=== PATIENT | female | born 1965 | race Caucasian/White ===

== ENCOUNTER 2020-01-21 14:41 | Emergency (ER) | payer OTHER, SELFPAY ==
[2020-01-21 14:42] VITALS: BP 133/91; PULSE 98; RESP 14; TEMP 36.7; O2SAT 99; BMI 24.7
[2020-01-21] MEDS: Tetracaine 0.5% Ophthalmic Bottle OPHTHALMIC (15:38)
[2020-01-21] MEDS: Fluorescein 1 MG STRIP 1 STRIP OPHTHALMIC (15:38)
--- NOTE | 2020-01-21 15:39 | ED.DCSUM_ITS ---
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 She reports that she went to bed fine 2 days ago and woke up in the morning with a foreign body sensation in her right eye. She complains of pain that is 5-10 in severity currently and at worst. Is worsened by nothing. Is relieved by placing pressure over her right eye. She denies any matting of her eye. She does have photophobia. She does not wear contacts. She does wear glasses. Denies any known injury. However, she states that she works with a clear coat pain to that she is worried she may have gotten in her eye. Physical Examination: Vitals: Stable. Afebrile. General: Well-nourished and well-developed. Head: Normocephalic atraumatic. Right eye: Tetracaine was instilled. The right upper eyelid was everted. There is no foreign body. It was swept with a Q-tip. She has diffuse conjunctival injection. There is no foreign body visualized with the slit-lamp. She does have a corneal abrasion with fluorescein dye uptake over the visual axis on the right. Neck: Supple, no lymphadenopathy. No JVD. Nontender. Cardiovascular: Regular rate and rhythm. No murmurs. Respiratory: No respiratory distress. Clear to auscultation bilaterally. Abdominal: Soft, nontender, nondistended, normal bowel sounds. No guarding, rebound, or peritoneal signs. Back: Nontender. Extremities: Nontender, no edema. Skin: Normal color, no rash. Neurologic: Alert and oriented ?3. Cranial nerves II through XII are intact. Normal strength and sensation. Psych: Normal affect. Emergency Department Course and Treatment: Visual acuity is 20/70 on the right and 20/20 on the left. Patient had bacitracin ophthalmic placed. Treatment Plan: Patient will be discharged bacitracin ophthalmic. Instructed to use it 3 times a day until cleared by Dr. Terrazas. Return to the emergency department for any worsening symptoms. Disposition: To home in improved and stable condition. Impression: 1. Corneal abrasion on right. This note was generated with [employer] software. It may contain incorrect words, spelling, and punctuation that were not noted in review of the chart prior to signing ED Disposition - Plan for ED Patient: Instructions: ED Corneal Abrasion Referrals: Shantanu Terrazas MD [STAFF PHYSICIAN] - 3-5 Days
[2020-01-21 16:16] VITALS: BP 155/92; PULSE 82; RESP 18
== END 2020-01-21 16:18 | disposition home or self-care (01) ==
LOC: ED 15:20
PROVIDERS: Emergency Provider Emergency Medicine; PCP Internal Medicine
DX: S05.01XA Injury of conjunctiva and corneal abrasion without foreign body, right eye, initial encounter (principal); X58.XXXA Exposure to other specified factors, initial encounter
CPT/HCPCS: 99284

== ENCOUNTER 2021-10-05 21:06 | Emergency (ER) | payer OTHER, SELFPAY ==
[2021-10-05 21:07] VITALS: BP 170/80; PULSE 108; RESP 16; TEMP 36.3; O2SAT 98; BMI 25.2
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
[2021-10-05 21:59] LABS: Absolute Neutrophil Count 8.9 X10^3/uL (2.0-7.7); Basophil# 0.03 X10^3/uL; Basophil% 0.2 % (0-1); Eosinophil# 0.06 X10^3/uL; Eosinophils% 0.5 % (0-5); Hematocrit 40.2 % (37-47); Hemoglobin 12.9 g/dL (12.0-15.0); Lymphocyte % 17.5 % (19-41); Mean Corp Hgb Conc 32.1 g/dL (32-36); Mean Corpuscular Hgb 30.7 pg (27.0-32.0); Mean Corpuscular Volume 95.7 fL (81-99); Mean Platelet Vol. 8.8 fl (6.2-12.0); Monocyte# 0.86 X10^3/uL; Monocyte% 7.2 % (0-10); NRBC Flagged by Analyzer 0 % (0-5); Neutrophil # 8.89 X10^3/uL (2.7-7.7); Platelet Count 273 K/mm3 (150-450); RBC Distribution Width CV 12.8 % (11.6-14.6); RBC Distribution Width SD 45.1 fl (35.1-43.9)
[2021-10-05] MEDS: Ondansetron 4 MG/2 ML Vial IV (22:04)
[2021-10-05] MEDS: Morphine 4 MG/ML Syringe IV (22:04)
[2021-10-05] MEDS: 0.9% Normal Saline 1,000 ML 150 ML IV (22:05)
[2021-10-05 22:14] LABS: AST(SGOT) 17 U/L (15-37); Alanine Aminotransfer ALT/SGPT 22 U/L (13-56); Albumin, Serum 3.9 g/dL (3.2-5.0); Alkaline Phosphatase 82 U/L (45-117); Anion Gap 6 (5-15); BUN 16 mg/dL (7-18); BUN/Creat Ratio 19.8 RATIO (10-20); Bilirubin, Direct 0.08 mg/dL (0.00-0.30); Calcium,Total 9.3 mg/dL (8.5-10.1); Chloride 109 mmol/L (98-107); Creatinine, Serum 0.81 mg/dL (0.55-1.02); EST Glomerular Filtration Rate 77 mL/min (>60); Est Glom Filt Rate - Afr Amer 94 mL/min (>60); Globulin 3.1 g/dL (2.2-4.2); Glucose 106 mg/dL (74-106); Lipase 80 U/L (73-393); Potassium 3.5 mmol/L (3.5-5.1); Sodium Level 141 mmol/L (136-145)
[2021-10-05 23:16] VITALS: BP 150/92; PULSE 85; RESP 15; O2SAT 100
[2021-10-05] MEDS: HYDROmorphone 0.5 MG/0.5 ML SYRINGE IV (23:23)
[2021-10-05 23:40] VITALS: BP 141/88; PULSE 73; RESP 13; O2SAT 100
== END 2021-10-05 23:47 | disposition home or self-care (01) ==
PROVIDERS: Emergency Provider Emergency Medicine; PCP Internal Medicine; Visit Provider Emergency Medicine
DX: S20.20XA Contusion of thorax, unspecified, initial encounter (principal); S30.1XXA Contusion of abdominal wall, initial encounter; E78.00 Pure hypercholesterolemia, unspecified; F17.210 Nicotine dependence, cigarettes, uncomplicated; Z79.899 Other long term (current) drug therapy; X58.XXXA Exposure to other specified factors, initial encounter
CPT/HCPCS: 71260; 74177; 80048; 80076; 83690; 85025; 96374; 96375; 99285; Q9967; A4216; J2405